=== PATIENT | male | born 1970 | race Hispanic/Latino ===

== ENCOUNTER 2023-06-18 06:17 | Day surgery (SDC) | payer BC ==
--- NOTE | 2023-06-12 11:22 | RAD REPORT ---
EXAM DESCRIPTION: RAD - Chest Pa And Lat (2 Views) - 06/12/2023 11:14 am CLINICAL HISTORY: pre procedure, hypertension COMPARISON: No comparisons FINDINGS: Lines: None. Lungs: No evidence of edema or pneumonia. Pleural: No significant pleural effusions or pneumothorax. Cardiac: The heart size is within normal limits. Mediastinum: Within normal limits. Bones: No acute fractures. Other: None IMPRESSION: No acute cardiopulmonary disease.
[2023-06-12 11:25] LABS: Absolute Lymphocytes (CBC) 1.6 K/uL (0.7-4.9); Hematocrit 46.7 % (39.6-49.0); Lymphocytes % 21.2 % (15.3-44.8); MCV 93.4 fL (80-100); MPV 6.7 fL (7.6-11.3); Platelets 242 thou/uL (152-406); RBC Red Blood Cell Count 5.01 M/uL (4.33-5.43)
[2023-06-12 11:30] LABS: Protime INR 0.84
[2023-06-12 11:41] LABS: Potassium 4.5 mEq/L (3.5-5.1)
[2023-06-18] MEDS ORDERED: NA CHLORIDE 0.9% 500 ML ONE (06:33)
[2023-06-18] MEDS ORDERED: HEPA 1000U/500MLS 2,000 UNIT/1,000 ML BAG IV ONE (06:42)
[2023-06-18] MEDS ORDERED: LIDOCAINE 1% 20 ML MDV ONE (06:43)
[2023-06-18] MEDS ORDERED: FENTANYL CITR 100 MCG/2 ML ONE (06:43)
[2023-06-18] MEDS ORDERED: ASPIRIN 325 MG TAB ONE (06:44)
[2023-06-18] MEDS ORDERED: HEPARIN 5000 UNIT/ML 1 ML VIAL ONE (06:44)
[2023-06-18] MEDS ORDERED: VERAPAMIL HCL 10 MG/4 ML VIAL IV ONE (06:44)
[2023-06-18] MEDS ORDERED: MIDAZOLAM HCL 2 MG/2 ML INJ ONE (06:44)
[2023-06-18] MEDS ORDERED: CLOPIDOGREL 75 MG TABLET ONE (06:44)
[2023-06-18] MEDS ORDERED: HEPARIN 10,000 UNIT/10 ML VIAL IV ONE (06:45)
[2023-06-18] MEDS ORDERED: TICAGRELOR 90 MG TABLET PO ONE (06:45)
[2023-06-18] MEDS ORDERED: ATROPINE SULF 1 MG/10 ML SYR IV ONE (06:45)
[2023-06-18] MEDS ORDERED: NITROGLYCERIN/D5W 50 MG/250 ML BTL IV ONE (06:46)
[2023-06-18 07:38] VITALS: TEMP 97; O2SAT 98
--- NOTE | 2023-06-18 08:00 | OP ---
Date of Procedure: 06/18/2023 Surgeon: MEDARDO CASAS Procedures Performed: 1.Selective coronary angiogram. 2.Left heart catheterization. Indication: Unstable angina. Access: Right radial artery 6-Lithuanian, closed with TR band. Complications: None. Bleeding: Less than 20 mL. Description Of Procedure: After risks, benefits, and alternatives were explained, patient agreed to procedure and signed informal consent. Patient was brought into cardiac catheterization laboratory, prepped and draped in the usual sterile fashion. Then, I accessed right radial artery using [employer] c micropuncture kit, placed 6-L[place]ian slender sheath and took from 5-L[place]ian Hiwasse 4.0 catheter into th e aortic root, engaged the RCA, took standard views and exchanged for a 6-Lith[place]ian JL3.5 guide catheter , engaged the left main, took standard views and then catheter was pushed over the wire into the LV, measured the LVEDP. Pullback did not record any gradient and then I removed the catheter and the she ath, placed TR band with good hemostasis. Findings: 1.Left main is large and normal. 2.LAD: Ostial severe 80% stenosis, heavily calcified and proximal long 60% stenosis. In mid there is focal 80% stenosis right after the septal and the diagonal branch takeoff and the rest of the LAD is normal. Diagonal branch appears to be normal with some luminal irregularities. 3.Left circumflex; moderate size with proximal 40% stenosis and luminal irregularities. 4.RCA: Large and dominant proximal 50% stenosis and the PDA has 2 tandem lesions ranging between 30 % and 40%. 5.LVEDP is normal at 9 mmHg. Conclusion: 1.Severe ostial LAD stenosis and mid LAD stenosis. 2.Moderate coronary artery disease elsewhere and normal LVEDP. Plan: Recommend to be evaluated by CT Surgery for single-vessel CABG, and if the patient does not wa nt open-heart surgery, then the patient will need shockwave or CSI atherectomy of the ostial LAD foll owed by PCI, which we will plan for in [place] to be done in the near future. In the interim, asp irin and high-dose statin. SR/MODL Voice ID: [id number] Report ID: [id number]
[2023-06-18 09:09] VITALS: BP 130/80
== END 2023-06-18 09:20 | disposition home or self-care (01) ==
LOC: CCL 06:17
PROVIDERS: ATTEND Internal Medicine
DX: I25.110 Atherosclerotic heart disease of native coronary artery with unstable angina pectoris (principal); I10 Essential (primary) hypertension; E78.2 Mixed hyperlipidemia; F17.220 Nicotine dependence, chewing tobacco, uncomplicated; Z82.49 Family history of ischemic heart disease and other diseases of the circulatory system; Z79.899 Other long term (current) drug therapy
CPT/HCPCS: 85025; 80048; 36415; 85610; 85730; 71046; 93458; 76937; C1893; Q9966; J1644; J2001; J2250; J3010; J7040; J0461